=== PATIENT | male | born 1940 | race Caucasian/White ===

== ENCOUNTER 2017-06-26 12:45 | Inpatient (IN) | payer OTHER ==
[~2017-06-26] VITALS: Ht 170.1 cm; Wt 80.7 kg
--- NOTE | ~2017-06-26 | WRIGHTHP ---
[place], [place] PATIENT HISTORY AND PHYSICAL EXAM NAME: PETRONA GOVEA UNIT #: [id number] ROOM: 314 DOCTOR: MARIELENA PARSONS MD BIRTHDATE: [birth year] DOS: 06/27/2017 CHIEF COMPLAINT: "My daughters thought I needed to be checked out." HISTORY OF PRESENT ILLNESS: This is a 77-year-old white male who was sent here on an involuntary basis from [facility] emergency room. The patient initially presented to the ED with his family. Family stated that he has been acting erratically of late. He has been sharing his opioid medication with a female that he knows. He has been also driving erratically and spending excessive amounts of money on her. Per his report, during my evaluation, he reports that he and his , who approximately 2 years ago, had befriended this single mother 15 years before his passed and that they had always been giving people and tried to take care of her and assist her in her being able to function adequately. He continues to report that he is doing the same thing now and states that he has no issues with depression, mood swings, irritability or psychosis. He does note no previous psychiatric history. PAST MEDICAL HISTORY: Remarkable for bilateral cataracts, hyperlipidemia, hypertension, diabetes, bilateral hip replacement and rotator cuff repair. SOCIAL HISTORY: The patient is a former cigarette smoker. He does not use illicit drugs and he does not drink alcohol. STRENGTHS: He is relatively healthy. He is ambulatory and he has a supportive environment. MENTAL STATUS: The patient is alert and oriented to person, place and time. Mood seems fairly euthymic. Affect appropriate. Speech rate and pattern is within normal limits and he speaks of all of this going on around him. I do not see the presence of migdalia or hypomania. Likewise, I do not see any delusions, paranoia or any auditory or visual hallucinations. Memory for the most part is relatively intact. DIAGNOSIS: Impulse control disorder, not otherwise specified. PLAN: I will go ahead and start him on Invega at this point, but at a considerably lower dose than he did upon admission. I did give him 6 mg of Invega upon admission to the unit. I will cut this down to 3 mg in the morning. We will have Dr. Gustavo White, psychologist, consulted to do a competency to see whether or not his power of energy attorney actually kicks in. My sense is that the man is alert and oriented and is fully competent. We will go ahead with a second opinion. I will have social science professor reach out to his daughters and set up a family session to ascertain what is going on within the family unit and gather more information. We will attempt then to discharge him to the least restrictive environment when psychiatrically stable. [place], [place] PATIENT HISTORY AND PHYSICAL EXAM NAME: PETRONA GOVEA UNIT #: [id number] ROOM: [facility] DOCTOR: MARIELENA PARSONS MD BIRTHDATE: [birth year] MARIELENA PARSONS MD CM:HISPHYS:PATIENT HISTORY AND PHYSICAL EXAMINATION [id number] MARIELENA PARSONS MD 06/27/17 0926 interface
--- NOTE | ~2017-06-26 | DS ---
[place], [place] DISCHARGE SUMMARY NAME: PETRONA GOVEA UNIT #: [id number] ROOM: 314 DOCTOR: MARIELENA PARSONS MD BIRTHDATE: [birth year] DOS: 06/28/2017 CHIEF COMPLAINT: "My daughters thought I needed to be checked out." HISTORY OF PRESENT ILLNESS: This is a 77-year-old white male who was sent here on an involuntary basis from [facility] emergency room. The patient initially presented to the emergency room with his family. His family stated that he has been acting erratically of late. He has been sharing his opioid medications with a female that he has known for some time. He has also reportedly been driving erratically and spending excessive amounts of money on her. Per his report, during the evaluation, he reports that he and his , who approximately 2 years ago, had befriended this single mother for about 15 years. He has been attempting to help her with driving her to places and at times giving her money. His family, specifically his 2 daughters are opposed to him doing this. He denies upon admission any issues with depression, mood swings, irritability or psychosis. He also reports no previous psychiatric history. PAST MEDICAL HISTORY: Remarkable for bilateral cataracts, hyperlipidemia, hypertension, diabetes, bilateral hip replacements and rotator cuff surgery. SOCIAL HISTORY: The patient is a former cigarette smoker. He does not use any illicit drugs and does not drink alcohol. STRENGTHS: He is relatively healthy, ambulatory and has a supportive environment. SUMMARY OF THE HOSPITAL COURSE: The patient was initially admitted to the unit and given Invega 6 mg upon admission because the report sounded as if he was actively manic. I did lower this to 3 mg in the morning after having talked to him. His initial presentation seemed very plausible and he described what sounded to be ongoing family discord. I did consult Dr. Gustavo White, psychologist, for an independent evaluation. Dr. White deemed the patient competent and did feel that this is a family disturbance between him and his daughters. Dr. White did take the opportunity to reach out to the daughter who is listed as the power of [place] attorney and attempt to explain to her that her power of [place] attorney did not take effect because her father is still competent to make his own decisions. As of yet to happen today, the patient is to have a family meeting with his daughters to discuss these matters and to plan for discharge. As long as this meeting goes relatively well, discharge will proceed. The patient is to be discharged without medication as he is euthymic and is not psychotic, manic, or depressed. MENTAL STATUS AT DISCHARGE: The patient is alert and oriented times 3. Mood is fairly euthymic. Affect is appropriate. Speech rate and pattern is within normal limits. There is no symptom suggestive of hypomania or migdalia. Likewise, there are no overt auditory or visual hallucinations. No delusions, no paranoia. Short, intermediate, and long-term memory are fully intact. The patient shows good judgment and shows insight into his situation. [place], [place] DISCHARGE SUMMARY NAME: [facility] GOVEA [id number] UNIT #: [id number] ROOM: [facility] DOCTOR: MARIELENA PARSONS MD BIRTHDATE: [birth year] FINAL DIAGNOSIS: Adjustment disorder with depressed mood. DISPOSITION: The patient is to return home without any psychotropic medication. MARIELENA PARSONS MD CM:DISCHARG [id number] MARIELENA PARSONS MD 06/28/17 1329 interface
--- NOTE | ~2017-06-26 | CON ---
[place], [place] REPORT OF CONSULTATION NAME: PETRONA GOVEA UNIT #: [id number] ROOM: 314 DOCTOR: EDILSON MOORE ED.D (PETRA) BIRTHDATE: [birth year] DOS: 06/27/2017 HISTORY OF PRESENT ILLNESS: The patient is a 77-year-old male referred by Dr. Parsons for competency evaluation. At the present time, he is on the [facility]. He is a , his having 2 years ago. He does have 2 daughters, one of whom is his durable power of attorney at law for healthcare. I did meet with the patient and his daughter regarding his most recent behavior. States he worked for many years at a [employer] and also he worked as an electrician apprentice. His family physician is Dr. Ann. His medical history is pertinent for hypertension, insulin-dependent diabetes mellitus. His medications include ibuprofen, Crestor, insulin, Avapro, and metformin along with vitamin B12, Coenzyme Q10, and aspirin. He states he rarely drinks alcoholic beverages and quit smoking around 60 years ago. He was awake, alert and oriented in all three spheres. He adamantly denies any suicidal ideation or plan. Apparently, he was sent here from [facility] in [place], [place] and was sent for treatment of his impulsive behavior. He is presently on Invega also for his behavioral health issues. Short and long-term memory appear to be intact. He has been doing some impulsive behaviors; however, they seem to be related to the friendship he has with a female. He has been spending money he does not have and has not gotten himself into debt. He is having some family issues due to this fact. He does, however, appear to be competent to make informed healthcare decisions. He does admit to missing his and there seemed to be an element of depression underlying some of his behaviors, in my opinion. DIAGNOSIS: Pervasive depressive disorder. RECOMMENDATIONS: In my opinion, this patient appears to be competent to make informed healthcare decisions. Thank you very much for this consult. EDILSON MOORE ED.D CM:CONSTR:REPORT OF CONSULTATION 1414 06/27/17 [id number] interface MARIELENA PARSONS MD
[2017-06-26] MEDS ORDERED: IBU800 M1 PO (13:11)
[2017-06-26] MEDS ORDERED: CRESTOR10 M1 PO (13:12)
[2017-06-26] MEDS ORDERED: AVAPRO150 M1 PO (13:15)
[2017-06-26] MEDS ORDERED: METFORMIN500 MG PO (13:16)
[2017-06-26] MEDS ORDERED: LEVEMIR FL100 UNIT/1 SQ (13:16)
[2017-06-26] MEDS ORDERED: HUMALOG100 UNIT/2 SQ (13:17)
[2017-06-26] MEDS ORDERED: ASPIR LOW81 MG PO (13:20)
[2017-06-26] MEDS ORDERED: COENZYME Q PO (13:20)
[2017-06-26] MEDS ORDERED: GARLIC1 EAC1 PO (13:21)
[2017-06-26] MEDS ORDERED: VITAMIN B121000 MC1 PO (13:22)
[2017-06-26] MEDS ORDERED: ALOE VERA25 M1 PO (13:25)
[2017-06-26] MEDS ORDERED: PROBIOTIC ACID1 EAC3 PO (13:27)
[2017-06-26] MEDS ORDERED: VITAMIN D31000 UNI1 PO (13:28)
[2017-06-26] MEDS ORDERED: CALCIUM 600 +1 EACH PO (13:31)
[2017-06-26] MEDS ORDERED: VITAMIN C500 M4 PO (13:32)
[2017-06-26 15:38] VITALS: BP 154/61
[2017-06-26 17:41] LABS: BILIRUBIN NEGATIVE (NEGATIVE); BLOOD NEGATIVE (NEGATIVE); CLARITY CLEAR (CLEAR); COLOR YELLOW (YELLOW); GLUCOSE 2+ (NEGATIVE); KETONE NEGATIVE (NEGATIVE); LEUKO ESTERASE NEGATIVE (NEGATIVE); NITRITE NEGATIVE (NEGATIVE); SPECIFIC GRAVITY 1.025 (1.005-1.030); UROBILINOGEN 0.2 E.U./dl (0.2-1.0)
[2017-06-26 17:45] LABS: BACTERIA TRACE; EPITHELIAL CELLS 0-2; MUCOUS TRACE; RBC 0-2 rbc/hpf (0-2); WBC 0-2 wbc/hpf (0-5)
[2017-06-26 20:00] VITALS: BP 136/58
[2017-06-27 07:28] LABS: CHLORIDE 105 mmol/L (98-107); POTASSIUM 3.7 mmol/L (3.5-5.1); SODIUM 140 mmol/L (136-145)
[2017-06-27 07:45] VITALS: BP 117/69; BP 124/70
[2017-06-27 07:47] LABS: ALBUMIN 3.3 gm/dl (3.1-4.5); ALKALINE PHOSPHATASE 56 U/L (45-117); BUN 16 mg/dl (7-24); CHOLESTEROL 130 mg/dL (<200); HDL CHOLESTEROL 32 mg/dl (40-60); LDL CHOLESTEROL 75 mg/dL (9-159); SGOT/AST 17 IU/L (3-35); SGPT/ALT 22 U/L (12-78); TOTAL PROTEIN 6.4 gm/dL (6.4-8.2); TRIGLYCERIDES 114 mg/dl (<150); VLDL CHOLESTEROL 23 mg/dL (6-40)
[2017-06-27 11:17] LABS: VITAMIN D, 25-HYDROXY 27.5 ng/mL (30-100)
[2017-06-27] MEDS ORDERED: FLONASE ALLERG9.9 ML NAS (15:55)
[2017-06-27 20:01] VITALS: BP 155/64
[2017-06-28 07:50] VITALS: BP 145/69
== END 2017-06-28 17:07 | disposition home or self-care (01) | DRG 885 ==
LOC: 3N 12:45
PROVIDERS: Psychiatry & Neurology Psychiatry
DX: F23 Brief psychotic disorder (principal); E11.9 Type 2 diabetes mellitus without complications; F43.21 Adjustment disorder with depressed mood; F63.9 Impulse disorder, unspecified; E78.5 Hyperlipidemia, unspecified; H26.9 Unspecified cataract; F34.1 Dysthymic disorder; I10 Essential (primary) hypertension; Z96.643 Presence of artificial hip joint, bilateral; Z87.891 Personal history of nicotine dependence; Z79.4 Long term (current) use of insulin; Z80.1 Family history of malignant neoplasm of trachea, bronchus and lung; Z80.42 Family history of malignant neoplasm of prostate; Z88.0 Allergy status to penicillin; Z91.041 Radiographic dye allergy status; Z79.899 Other long term (current) drug therapy; Z79.82 Long term (current) use of aspirin